=== PATIENT | male | born 1960 | race Caucasian/White ===

== ENCOUNTER 2020-03-01 18:08 | Inpatient (IN) | payer OTHER, SELFPAY ==
[~2020-03-01] VITALS: Ht 175.3 cm; Wt 98.0 kg
[~2020-03-01 18:08] MED LIST: ALD50 PO; ATARAX50 M PO; DAKLINZA60 MG PO; FUROSEMIDE40 MG PO; HYT1 PO; L40 PO; LACTULOSE10 GM/152 PO; LEVOTHYROXINE0.15 MG PO; LOTRIMIN AF1% TOP; MIRTAZAPINE45 M1 PO; MIRTAZAPINE45 MG PO; OMEPRAZOLE DR20 MG PO; PREDNISONE20 MG PO; PROPANOLOL PO; PROPRANOLOL HCL10 MG PO; REBETOL200 MG PO; SERTRALINE HCL50 MG PO; SOVALDI400 MG PO; SPIRONOLACTONE100 MG PO; SYNTHROID0.112 MG; TRAMADOL; TRAMADOL HCL50 M PO; TUMS CH; [UNRECOGNIZED DRUG - OTHER] PO
[2020-03-01 18:13] VITALS: Ht 175.3 cm; Wt 98.0 kg
[2020-03-01 19:05] LABS: BASOPHIL % 0.4 % (0-2); PLATELET COUNT 101 x10^3mcL (130-400); RED CELL DISTRIBUTION WIDTH 16.6 % (11.5-14.5)
[2020-03-01 19:19] LABS: ALKALINE PHOSPHATASE 109 U/L (46-116); ALT/SGPT 64 U/L (16-63); AST/SGOT 98 U/L (15-37); BILIRUBIN TOTAL 1.3 mg/dL (0.20-1.00); CALCIUM 8.8 mg/dL (8.5-10.1); CARBON DIOXIDE 22.4 mmol/L (21-32); CHLORIDE SERUM 95 mmol/L (98-107); CREATININE SERUM 1.2 mg/dL (0.7-1.3); GFR1 > 60 mL/min; GLUCOSE SERUM 324 mg/dL (74-106); LACTIC DEHYDROGENASE (LDH) 374 U/L (100-190); POTASSIUM SERUM 4.8 mmol/L (3.5-5.1)
[2020-03-01 19:20] LABS: ALBUMIN 2.3 g/dL (3.4-5.0); TOTAL PROTEIN, SERUM 8.4 g/dL (6.4-8.2)
[2020-03-01 19:21] LABS: SODIUM SERUM 124 mmol/L (136-145)
[2020-03-01 19:31] LABS: C REACTIVE PROTEIN 21.3 mg/dL (<=0.9)
[2020-03-01 19:32] LABS: microscopic required? YES; urine erythrocyte TRACE (NEGATIVE)
[2020-03-01 22:01] VITALS: BP 124/80
[2020-03-01 22:03] VITALS: BP 133/85
[2020-03-02 06:11] VITALS: BP 101/70
[2020-03-02 07:17] LABS: CALCIUM 8.2 mg/dL (8.5-10.1); CARBON DIOXIDE 23.9 mmol/L (21-32); CHLORIDE SERUM 98 mmol/L (98-107); CREATININE SERUM 1.1 mg/dL (0.7-1.3); GFR1 > 60 mL/min; GLUCOSE SERUM 174 mg/dL (74-106); POTASSIUM SERUM 4.7 mmol/L (3.5-5.1); SODIUM SERUM 129 mmol/L (136-145)
[2020-03-02 08:17] LABS: RED CELL DISTRIBUTION WIDTH 16.2 % (11.5-14.5)
[2020-03-02 09:31] VITALS: BP 112/75
[2020-03-02] MEDS ORDERED: MIRTAZAPINE30 M3 PO (10:43)
[2020-03-02] MEDS ORDERED: GLIPIZIDE10 M3 PO (10:56)
[2020-03-02] MEDS ORDERED: XIFAXAN550 M1 PO (10:57)
[2020-03-02] MEDS ORDERED: OXCARBAZEPINE300 M1 PO (10:58)
[2020-03-02] MEDS ORDERED: THIAMINE HCL100 MG PO (10:58)
[2020-03-02] MEDS ORDERED: XOP0.63 (10:59)
[2020-03-02] MEDS ORDERED: FEROSUL325 MG PO (11:00)
[2020-03-02] MEDS ORDERED: NATURE'S BLEND F1 MG PO (11:01)
[2020-03-02] MEDS ORDERED: FLOMAX0.4 MG PO (11:02)
[2020-03-02] MEDS ORDERED: FINASTERIDE1 MG PO (11:03)
[2020-03-02] MEDS ORDERED: METFORMIN HCL1000 MG PO (11:04)
[2020-03-02] MEDS ORDERED: PANTOPRAZOLE SO20 M1 PO (11:04)
[2020-03-02] MEDS ORDERED: ATORVASTATIN CA10 M1 PO (11:05)
[2020-03-02 11:53] LABS: SEGMENTED NEUTROPHILS 68 % (37-75)
[2020-03-02 11:54] LABS: MONOCYTE 12 % (0-7); PLATELET MORPHOLOGY PLATELETS DECREASED; rbc morphology (normal/abnorm) ABNORMAL (NORMAL)
[2020-03-02 12:31] LABS: PLATELET COUNT 78 x10^3mcL (130-400)
[2020-03-02 12:37] LABS: BAND NEUTROPHIL 0 % (0-10)
[2020-03-02 12:40] VITALS: BP 105/66
[2020-03-02 17:06] VITALS: BP 103/69
[2020-03-02 21:16] VITALS: BP 106/70
[2020-03-03 05:42] VITALS: BP 94/67
[2020-03-03 07:32] LABS: BASOPHIL % 0.2 % (0-2)
[2020-03-03 07:53] LABS: CALCIUM 8.4 mg/dL (8.5-10.1); CREATININE SERUM 1.3 mg/dL (0.7-1.3); POTASSIUM SERUM 4.7 mmol/L (3.5-5.1)
[2020-03-03 08:09] VITALS: BP 113/72
[2020-03-03 08:31] LABS: RED CELL DISTRIBUTION WIDTH 16.6 % (11.5-14.5)
[2020-03-03 08:33] LABS: PLATELET COUNT 80 x10^3mcL (130-400)
[2020-03-03 13:22] VITALS: BP 125/84
[2020-03-03 17:15] VITALS: BP 112/74
[2020-03-03 21:42] VITALS: BP 113/74
[2020-03-04 06:53] LABS: CARBON DIOXIDE 24.5 mmol/L (21-32); CHLORIDE SERUM 100 mmol/L (98-107); CREATININE SERUM 1.1 mg/dL (0.7-1.3); GFR1 > 60 mL/min; GLUCOSE SERUM 277 mg/dL (74-106); POTASSIUM SERUM 5.5 mmol/L (3.5-5.1); SODIUM SERUM 131 mmol/L (136-145)
[2020-03-04 06:56] VITALS: BP 109/78
[2020-03-04 07:10] LABS: PLATELET COUNT 86 x10^3mcL (130-400); RED CELL DISTRIBUTION WIDTH 16.3 % (11.5-14.5)
[2020-03-04 08:35] VITALS: BP 115/80
[2020-03-04 09:26] LABS: BILIRUBIN DIRECT 0.32 mg/dL (0.0-0.2); BILIRUBIN TOTAL 0.61 mg/dL (0.20-1.00)
[2020-03-04 09:37] LABS: ALBUMIN 2.1 g/dL (3.4-5.0); TOTAL PROTEIN, SERUM 8.5 g/dL (6.4-8.2)
[2020-03-04 12:25] LABS: MONOCYTE 7 % (0-7); SEGMENTED NEUTROPHILS 83 % (37-75); rbc morphology (normal/abnorm) NORMAL (NORMAL)
[2020-03-04 12:30] VITALS: BP 122/80
[2020-03-04 17:35] VITALS: BP 124/82
[2020-03-04 20:19] VITALS: BP 115/74
[2020-03-05 05:35] VITALS: BP 108/74
[2020-03-05 06:53] LABS: BILIRUBIN DIRECT 0.29 mg/dL (0.0-0.2); BILIRUBIN TOTAL 0.55 mg/dL (0.20-1.00)
[2020-03-05 06:55] LABS: CALCIUM 9.3 mg/dL (8.5-10.1); CARBON DIOXIDE 23.9 mmol/L (21-32); CHLORIDE SERUM 100 mmol/L (98-107); CREATININE SERUM 1.2 mg/dL (0.7-1.3); GFR1 > 60 mL/min; GLUCOSE SERUM 358 mg/dL (74-106); SODIUM SERUM 130 mmol/L (136-145)
[2020-03-05 07:20] LABS: ALBUMIN 2.2 g/dL (3.4-5.0); TOTAL PROTEIN, SERUM 8.5 g/dL (6.4-8.2)
[2020-03-05 07:27] LABS: PLATELET COUNT 88 x10^3mcL (130-400); RED CELL DISTRIBUTION WIDTH 16.2 % (11.5-14.5)
[2020-03-05 08:00] LABS: POTASSIUM SERUM 5.8 mmol/L (3.5-5.1)
[2020-03-05 08:34] VITALS: BP 109/68
[2020-03-05 10:26] LABS: MONOCYTE 5 % (0-7); SEGMENTED NEUTROPHILS 85 % (37-75); rbc morphology (normal/abnorm) ABNORMAL (NORMAL)
[2020-03-05 12:23] VITALS: BP 104/71
[2020-03-05 17:06] VITALS: BP 109/74
[2020-03-05 19:25] VITALS: BP 116/73
[2020-03-06 05:51] LABS: BASOPHIL % 0.3 % (0-2)
[2020-03-06 06:01] LABS: PLATELET COUNT 88 x10^3mcL (130-400); RED CELL DISTRIBUTION WIDTH 16.3 % (11.5-14.5)
[2020-03-06 06:08] LABS: BILIRUBIN DIRECT 0.32 mg/dL (0.0-0.2); BILIRUBIN TOTAL 0.58 mg/dL (0.20-1.00); CALCIUM 9.4 mg/dL (8.5-10.1); CREATININE SERUM 1.3 mg/dL (0.7-1.3)
[2020-03-06 06:12] LABS: ALBUMIN 2.3 g/dL (3.4-5.0); TOTAL PROTEIN, SERUM 8.6 g/dL (6.4-8.2)
[2020-03-06 06:19] LABS: POTASSIUM SERUM 5.8 mmol/L (3.5-5.1)
[2020-03-06 06:24] VITALS: BP 129/83
[2020-03-06 08:42] VITALS: BP 112/76
[2020-03-06 12:55] VITALS: BP 110/75
[2020-03-06 15:51] VITALS: BP 112/75
[2020-03-06 21:17] VITALS: BP 116/74
[2020-03-07 04:19] VITALS: BP 114/79
[2020-03-07 08:04] LABS: BILIRUBIN DIRECT 0.36 mg/dL (0.0-0.2); BILIRUBIN TOTAL 0.71 mg/dL (0.20-1.00)
[2020-03-07 08:14] LABS: ALBUMIN 2.4 g/dL (3.4-5.0)
[2020-03-07 08:22] VITALS: BP 115/78
[2020-03-07 11:51] VITALS: BP 107/72
[2020-03-07 16:53] VITALS: BP 110/68
[2020-03-07 20:49] VITALS: BP 107/65
[2020-03-08 05:40] VITALS: BP 108/74
[2020-03-08 07:56] LABS: BASOPHIL % 0.3 % (0-2)
[2020-03-08 08:00] LABS: PLATELET COUNT 77 x10^3mcL (130-400)
[2020-03-08 08:15] LABS: CALCIUM 9.8 mg/dL (8.5-10.1); CARBON DIOXIDE 23.5 mmol/L (21-32); CHLORIDE SERUM 99 mmol/L (98-107); CREATININE SERUM 1.1 mg/dL (0.7-1.3); GFR1 > 60 mL/min; GLUCOSE SERUM 274 mg/dL (74-106); SODIUM SERUM 130 mmol/L (136-145)
[2020-03-08 08:34] LABS: BILIRUBIN DIRECT 0.36 mg/dL (0.0-0.2); BILIRUBIN TOTAL 0.71 mg/dL (0.20-1.00)
[2020-03-08 08:35] LABS: ALBUMIN 2.3 g/dL (3.4-5.0); TOTAL PROTEIN, SERUM 8.3 g/dL (6.4-8.2)
[2020-03-08 08:41] VITALS: BP 107/79
[2020-03-08 12:02] VITALS: BP 108/78
[2020-03-08 16:30] VITALS: BP 112/69
[2020-03-08 21:08] VITALS: BP 115/73
[2020-03-09 06:30] VITALS: BP 117/85
[2020-03-09 07:49] LABS: CALCIUM 9.5 mg/dL (8.5-10.1); CARBON DIOXIDE 26.8 mmol/L (21-32); CHLORIDE SERUM 98 mmol/L (98-107); CREATININE SERUM 1.1 mg/dL (0.7-1.3); GFR1 > 60 mL/min; GLUCOSE SERUM 226 mg/dL (74-106); POTASSIUM SERUM 5.1 mmol/L (3.5-5.1); SODIUM SERUM 131 mmol/L (136-145)
[2020-03-09 08:12] LABS: BASOPHIL % 0.8 % (0-2); PLATELET COUNT 84 x10^3mcL (130-400); RED CELL DISTRIBUTION WIDTH 16.5 % (11.5-14.5)
[2020-03-09 08:19] VITALS: BP 96/67
[2020-03-09 08:33] VITALS: BP 105/69
[2020-03-09 11:57] VITALS: BP 102/71
[2020-03-09 16:21] VITALS: BP 107/74
[2020-03-09 19:47] VITALS: BP 111/71
[2020-03-10 05:21] VITALS: BP 104/73
[2020-03-10 06:54] LABS: BASOPHIL % 0.1 % (0-2)
[2020-03-10 07:13] LABS: PLATELET COUNT 74 x10^3mcL (130-400); RED CELL DISTRIBUTION WIDTH 16.6 % (11.5-14.5)
[2020-03-10 07:25] LABS: CALCIUM 9.5 mg/dL (8.5-10.1); CARBON DIOXIDE 27.7 mmol/L (21-32); CHLORIDE SERUM 97 mmol/L (98-107); CREATININE SERUM 1.1 mg/dL (0.7-1.3); GFR1 > 60 mL/min; GLUCOSE SERUM 234 mg/dL (74-106); POTASSIUM SERUM 4.7 mmol/L (3.5-5.1); SODIUM SERUM 130 mmol/L (136-145)
[2020-03-10 08:51] VITALS: BP 115/73
[2020-03-10 12:33] VITALS: BP 102/62
[2020-03-10 16:20] VITALS: BP 108/75
[2020-03-10 19:38] VITALS: BP 107/77
[2020-03-11 04:43] VITALS: BP 114/76
[2020-03-11 06:50] LABS: BASOPHIL % 0.1 % (0-2)
[2020-03-11 07:16] LABS: PLATELET COUNT 52 x10^3mcL (130-400); RED CELL DISTRIBUTION WIDTH 16.6 % (11.5-14.5)
[2020-03-11 07:23] LABS: CARBON DIOXIDE 25.6 mmol/L (21-32); CHLORIDE SERUM 98 mmol/L (98-107); GFR1 > 60 mL/min; GLUCOSE SERUM 237 mg/dL (74-106); POTASSIUM SERUM 4.7 mmol/L (3.5-5.1); SODIUM SERUM 128 mmol/L (136-145)
[2020-03-11 09:50] VITALS: BP 100/70
[2020-03-11 12:12] VITALS: BP 108/71
[2020-03-11 16:49] VITALS: BP 141/75
[2020-03-11 20:23] VITALS: BP 121/80
[2020-03-12 05:15] VITALS: BP 107/65
[2020-03-12 06:54] LABS: BASOPHIL % 0.1 % (0-2)
[2020-03-12 07:00] LABS: CALCIUM 8.7 mg/dL (8.5-10.1); CARBON DIOXIDE 27.7 mmol/L (21-32); CHLORIDE SERUM 100 mmol/L (98-107); CREATININE SERUM 0.8 mg/dL (0.7-1.3); GFR1 > 60 mL/min; GLUCOSE SERUM 109 mg/dL (74-106); POTASSIUM SERUM 4.6 mmol/L (3.5-5.1); SODIUM SERUM 130 mmol/L (136-145)
[2020-03-12 07:23] LABS: RED CELL DISTRIBUTION WIDTH 16.6 % (11.5-14.5)
[2020-03-12 07:25] LABS: PLATELET COUNT 43 x10^3mcL (130-400)
[2020-03-12 08:30] VITALS: BP 112/70
[2020-03-12 13:00] VITALS: BP 113/72
[2020-03-12 18:00] VITALS: BP 120/83
[2020-03-12 20:35] VITALS: BP 118/76
[2020-03-13 05:32] VITALS: BP 114/76
[2020-03-13 06:58] LABS: CALCIUM 8.7 mg/dL (8.5-10.1); CARBON DIOXIDE 25.2 mmol/L (21-32); CHLORIDE SERUM 100 mmol/L (98-107); CREATININE SERUM 0.9 mg/dL (0.7-1.3); GFR1 > 60 mL/min; GLUCOSE SERUM 190 mg/dL (74-106); POTASSIUM SERUM 4.5 mmol/L (3.5-5.1); SODIUM SERUM 130 mmol/L (136-145)
[2020-03-13 07:20] LABS: BASOPHIL % 0 % (0-2); RED CELL DISTRIBUTION WIDTH 16.9 % (11.5-14.5)
[2020-03-13 08:38] VITALS: BP 144/70
[2020-03-13 08:39] VITALS: BP 112/63
[2020-03-13 08:41] LABS: PLATELET COUNT 37 x10^3mcL (130-400)
[2020-03-13 12:47] VITALS: BP 106/62
[2020-03-13 16:06] VITALS: BP 103/59
[2020-03-13 20:55] VITALS: BP 106/56
[2020-03-14 05:30] VITALS: BP 105/61
[2020-03-14 08:28] VITALS: BP 110/62
[2020-03-14 12:26] VITALS: BP 110/70
[2020-03-14 14:55] VITALS: BP 110/70
== END 2020-03-14 15:27 | disposition other institution (70) | DRG 177 ==
LOC: ED 18:08 → DU 19:13
PROVIDERS: Emergency Medicine; ADMIT Internal Medicine; ATTEND Internal Medicine
PROC: XW13325 Transfusion of Convalescent Plasma (Nonautologous) into Peripheral Vein, Percutaneous Approach, New Technology Group 5 (ICD-10-PCS; principal; 2020-03-04)
PROC: XW033E5 Introduction of Remdesivir Anti-infective into Peripheral Vein, Percutaneous Approach, New Technology Group 5 (ICD-10-PCS; 2020-03-05)
DX: U07.1 COVID-19 (principal); J12.89 Other viral pneumonia; J96.01 Acute respiratory failure with hypoxia; J44.1 Chronic obstructive pulmonary disease with (acute) exacerbation; I10 Essential (primary) hypertension; K74.60 Unspecified cirrhosis of liver; E03.9 Hypothyroidism, unspecified; B19.20 Unspecified viral hepatitis C without hepatic coma; E11.65 Type 2 diabetes mellitus with hyperglycemia; E87.5 Hyperkalemia; D69.6 Thrombocytopenia, unspecified
CPT/HCPCS: 36600; 82962; 83880; 85378; 87804; 94150; 97116-GP; 97530-GP; G0378; J0456; J0696; J1100; J1650; J1815; J1940; J2270; J7030; J7040; J7512; Q0092; U0003-CS